=== PATIENT | female | born 1965 | race Caucasian/White ===

== ENCOUNTER → 2020-11-06 | Outpatient (CLI) | payer BC ==
[~2020-11-06] MED LIST: CIPR500T19 OR; FLAG500T OR; NAPR500T OR
[2020-11-06 15:57] LABS: BLOOD UREA NITROGEN 18 MG/DL (7-18); CREATININE FOR GFR 0.82 MG/DL (0.55-1.30); GLOMERULAR FILTRATION RATE > 60.0 (>51)
== END ==
LOC: M PLALAB 14:07
PROVIDERS: ATTEND Orthopaedic Surgery
DX: S40.012D Contusion of left shoulder, subsequent encounter (principal); X58.XXXD Exposure to other specified factors, subsequent encounter

== ENCOUNTER → 2021-02-14 | Outpatient (CLI) | payer BC ==
[~2021-02-14] MED LIST changes: +LIDOCAINE 1% MDV 20ML VIAL As Ordered ONE; +methylPREDNISolone SUSP 40MG/ML 1ML VIAL (DEPO MEDROL) As Ordered ONE
--- NOTE | 2021-02-14 17:46 | REP ---
INDICATION: LT BICEP TENDONITIS. COMPARISON: None. TECHNIQUE: The procedure was performed by Dodie Segovia [facility], under the direct supervision of Dr. Aviles. The risks and benefits of the procedure were explained to the patient and an informed consent was obtained both verbally and written. Directly prior to the start of the procedure a formal time-out was completed in the procedure room. FINDINGS: Using ultrasound guidance the left biceps tendon was localized. The skin was prepped and draped in a sterile fashion. A 25 gauge needle was inserted and as it was advanced to the left a biceps tendon sheath, approximately 1.5 mL of mL of lidocaine was injected as a local anesthetic. 1.5 mL of a solution containing 1 mL 1% lidocaine 10 mg/ml and 0.5 mL Depo-Medrol 40 milligrams/milliliter was injected into the tendon sheath. The needle was removed and hemostasis was achieved. The patient tolerated the procedure well and there were no immediate complications. After the appropriate amount of monitored convalescence the patient was discharged from the department. IMPRESSION: 1. Ultrasound-guided left biceps tendon sheath injection. <Electronically signed by Dodie Segovia > 02/14/21 1238 <Electronically signed by Adama Aviles > 02/14/21 0684
== END ==
LOC: M IRPRO 09:28
PROVIDERS: ATTEND Physician Assistant
DX: M75.22 Bicipital tendinitis, left shoulder (principal)
CPT/HCPCS: 20550; 76942; J1030

== ENCOUNTER → 2024-01-02 | Outpatient (CLI) | payer BC ==
[~2024-01-02] MED LIST changes: -LIDOCAINE 1% MDV 20ML VIAL As Ordered ONE; -methylPREDNISolone SUSP 40MG/ML 1ML VIAL (DEPO MEDROL) As Ordered ONE
[2024-01-02 15:27] LABS: BASO # 0.1 10^3/uL (0.0-0.2); BASO % 0.6 % (0.0-1.0); EOS # 0.1 10^3/uL (0.0-0.5); EOS % 1.5 % (0.0-3.0); HEMATOCRIT 44.4 % (36.0-47.0); HEMOGLOBIN 14.2 g/dl (12.0-15.5); LYMPH # 2.1 10^3/uL (1.5-5.0); LYMPH % 26.9 % (24.0-44.0); MEAN CORPUSCULAR HEMOGLOBIN 28.9 pg (27.0-33.0); MEAN CORPUSCULAR VOLUME 90.4 fl (80.0-96.0); MONO # 0.7 10^3/uL (0.0-0.8); MONO % 9.4 % (2.0-8.0); NEUTROPHILS # 4.7 10^3/uL (1.5-8.5); NEUTROPHILS % 61.2 % (36.0-66.0); PLATELET COUNT, AUTOMATED 317 10^3/uL (150-450); RED BLOOD COUNT 4.91 10^6/uL (4.00-5.40); WHITE BLOOD COUNT 7.8 10^3/uL (4.0-10.0)
[2024-01-02 15:42] LABS: HEMOGLOBIN A1c 5.3 % (4.0-6.0)
[2024-01-02 16:00] LABS: TOTAL IRON BINDING CAPACITY 339 UG/DL (250-425)
[2024-01-02 16:03] LABS: ALKALINE PHOSPHATASE 89 U/L (46-116); ALT/SGPT 29 U/L (7.0-40); AST/SGOT 17 U/L (<34); BILIRUBIN,TOTAL 0.3 MG/DL (0.3-1.2); BLOOD UREA NITROGEN 17 MG/DL (9-23); CARBON DIOXIDE LEVEL 31 MMOL/L (20-31); CHLORIDE LEVEL 104 MMOL/L (98-107); CHOLESTEROL LEVEL 217 MG/DL (<200); CHOLESTEROL RISK RATIO 4.25 (<5); CREATININE FOR GFR 0.68 MG/DL (0.55-1.30); FREE T4 1.08 NG/DL (0.89-1.76); GLOMERULAR FILTRATION RATE > 60.0 (>51); GLUCOSE, FASTING 94 MG/DL (60-100); IRON (FE) 73 UG/DL (50-170); LDL CHOLESTEROL 133.8 MG/DL (<100); PERCENT SATURATION 21.5 % (13.2-45.0); POTASSIUM SERUM 4.8 MMOL/L (3.5-5.1); SODIUM LEVEL 139 MMOL/L (136-145); THYROID STIMULATING HORMONE 2.124 uIU/ML (0.55-4.78); TOTAL PROTEIN 7.1 G/DL (5.7-8.2); TRIGLYCERIDES LEVEL 161 MG/DL (<150)
[2024-01-02 18:58] LABS: HIV 1&2 SCREEN NEGATIVE (NEGATIVE)
[2024-01-02 19:06] LABS: HEPATITIS C VIRUS ABY INDEX < 0.02 INDEX (<0.8)
== END ==
LOC: M PLALAB 12:13
PROVIDERS: ATTEND Student in an Organized Health Care Education/Training Program
DX: Z76.89 Persons encountering health services in other specified circumstances (principal)

== ENCOUNTER → 2024-03-03 | Outpatient (REF) | payer BC ==
[2024-03-06 13:37] LABS: HPV APTIMA Not Detected (Not Detected)
== END ==
LOC: M SFHCWAGY 09:45
PROVIDERS: ATTEND Nurse Practitioner Family
DX: Z12.4 Encounter for screening for malignant neoplasm of cervix (principal); Z11.51 Encounter for screening for human papillomavirus (HPV)
CPT/HCPCS: 87070; 87624; G0123

== ENCOUNTER → 2024-03-03 | Outpatient (CLI) | payer BC | LOC: M WHC 14:55 | PROVIDERS: ATTEND Nurse Practitioner Family | DX: Z12.31 Encounter for screening mammogram for malignant neoplasm of breast (principal) ==

== ENCOUNTER → 2024-03-30 | Outpatient (CLI) | payer BC | LOC: M WHC 08:31 | PROVIDERS: ATTEND Nurse Practitioner Family | DX: N64.9 Disorder of breast, unspecified (principal) ==

== ENCOUNTER → 2024-05-03 | Outpatient (CLI) | payer BC ==
[2024-05-03 17:45] LABS: HEMATOCRIT 40.7 % (36.0-47.0); HEMOGLOBIN 13.3 g/dl (12.0-15.5); MEAN CORPUSCULAR HEMOGLOBIN 29.1 pg (27.0-33.0); MEAN CORPUSCULAR HGB CONC 32.7 g/dl (32.0-36.5); MEAN CORPUSCULAR VOLUME 89.1 fl (80.0-96.0); PLATELET COUNT, AUTOMATED 304 10^3/uL (150-450); RED BLOOD COUNT 4.57 10^6/uL (4.00-5.40)
[2024-05-03 18:18] LABS: ALBUMIN 3.9 G/DL (3.2-5.2); ALKALINE PHOSPHATASE 84 U/L (46-116); ALT/SGPT 18 U/L (7.0-40); AST/SGOT 14 U/L (<34); BILIRUBIN,TOTAL 0.4 MG/DL (0.3-1.2); BLOOD UREA NITROGEN 15 MG/DL (9-23); CALCIUM LEVEL 9.5 MG/DL (8.5-10.1); CARBON DIOXIDE LEVEL 27 MMOL/L (20-31); CHLORIDE LEVEL 109 MMOL/L (98-107); CREATININE FOR GFR 0.65 MG/DL (0.55-1.30); GLOMERULAR FILTRATION RATE > 60.0 (>51); GLUCOSE, FASTING 104 MG/DL (60-100); POTASSIUM SERUM 4.2 MMOL/L (3.5-5.1); SODIUM LEVEL 138 MMOL/L (136-145); TOTAL PROTEIN 7.1 G/DL (5.7-8.2)
== END ==
LOC: M LAB 17:12
PROVIDERS: ATTEND Surgery
DX: C50.912 Malignant neoplasm of unspecified site of left female breast (principal)

== ENCOUNTER → 2024-05-19 | Outpatient (REF) | payer BC | LOC: M SFHCPLAZ 17:17 | PROVIDERS: ATTEND Physician Assistant Medical | DX: R30.0 Dysuria (principal) ==

== ENCOUNTER → 2024-06-08 | Outpatient (CLI) | payer BC ==
[~2024-06-08] MED LIST changes: +FLUC200T4; +IBUP200T46 PO; +LETR2.5T2 PO
== END ==
LOC: M ONCM 15:00
PROVIDERS: ATTEND Dietitian, Registered
DX: C50.919 Malignant neoplasm of unspecified site of unspecified female breast (principal); Z71.3 Dietary counseling and surveillance; Z68.31 Body mass index [BMI] 31.0-31.9, adult

== ENCOUNTER → 2024-06-10 | Outpatient (CLI) | payer BC | LOC: M ONCR 09:18 | PROVIDERS: ATTEND General Practice | DX: C50.412 Malignant neoplasm of upper-outer quadrant of left female breast (principal); L76.34 Postprocedural seroma of skin and subcutaneous tissue following other procedure; Z98.890 Other specified postprocedural states; Z80.0 Family history of malignant neoplasm of digestive organs ==

== ENCOUNTER → 2024-07-08 | Outpatient (RCR) | payer BC | LOC: M ONCR 06-17 13:53 | PROVIDERS: ATTEND General Practice | DX: Z51.0 Encounter for antineoplastic radiation therapy (principal); C50.412 Malignant neoplasm of upper-outer quadrant of left female breast ==

== ENCOUNTER → 2024-07-08 | Outpatient (CLI) | payer BC | LOC: M WHC 11:10 | PROVIDERS: ATTEND Specialist | DX: Z13.820 Encounter for screening for osteoporosis (principal); C50.919 Malignant neoplasm of unspecified site of unspecified female breast ==

== ENCOUNTER 2024-07-09 15:40 | Outpatient (RCR) | payer BC ==
[~2024-07-09 15:40] MED LIST changes: +FLUC-1; -FLUC200T4
[2024-08-02] MEDS ORDERED: LETR2.5T2 PO (15:05)
== END 2024-08-07 ==
LOC: M ONCR 15:40
PROVIDERS: ATTEND General Practice
DX: Z51.0 Encounter for antineoplastic radiation therapy (principal); C50.412 Malignant neoplasm of upper-outer quadrant of left female breast

== ENCOUNTER 2024-10-14 14:56 | Outpatient (RCR) | payer BC | END 2024-11-05 | LOC: M PT 14:56 | PROVIDERS: ATTEND Specialist | DX: I89.0 Lymphedema, not elsewhere classified (principal) ==

== ENCOUNTER → 2025-01-06 | Outpatient (CLI) | payer BC | LOC: M ONCR 12:56 | PROVIDERS: ATTEND General Practice | DX: Z08 Encounter for follow-up examination after completed treatment for malignant neoplasm (principal); Z85.3 Personal history of malignant neoplasm of breast; Z79.811 Long term (current) use of aromatase inhibitors; T38.6X5A Adverse effect of antigonadotrophins, antiestrogens, antiandrogens, not elsewhere classified, initial encounter; R23.2 Flushing; M25.50 Pain in unspecified joint; Z92.3 Personal history of irradiation; Z98.890 Other specified postprocedural states ==

== ENCOUNTER → 2025-03-26 | Outpatient (REF) | payer BC ==
[~2025-03-26] MED LIST changes: +CALTTAB2 PO; +D3 H2000 PO; +EFFE37.52 PO; +MAPA500C PO; +MASTECTOMY BRA LEFT XX; +OCUVTAB4 PO; +VITA268C PO
== END ==
LOC: M LAB REF 19:40
DX: J02.9 Acute pharyngitis, unspecified (principal)